=== PATIENT | male | born 1980 | race Caucasian/White ===

== ENCOUNTER 2018-11-13 20:59 | Emergency (ER) | payer MEDICAID ==
[~2018-11-13] VITALS: Ht 162.6 cm; Wt 81.0 kg
[2018-11-14 00:31] VITALS: BP 132/88
== END 2018-11-14 00:31 | disposition home or self-care (01) ==
LOC: ER 20:59
DX: M79.602 Pain in left arm (principal); F17.200 Nicotine dependence, unspecified, uncomplicated; R20.0 Anesthesia of skin
CPT/HCPCS: 99283